=== PATIENT | male | born 1975 | race Two or more races ===

== ENCOUNTER 2020-02-24 11:49 | Emergency (ER) | payer OTHER ==
[~2020-02-24] VITALS: Ht 170.2 cm; Wt 81.6 kg
[2020-02-24 13:00] VITALS: BP 126/74
[2020-02-24] MEDS ORDERED: Ketorolac 30mg Inj IV ONE (13:00)
--- NOTE | 2020-02-24 13:00 | NUR ---
ED Nurse Note: Pt walked in from home c/o body aches and headache x 10 days. Pt was tested for COVID on 02/15 and negative. Denies SOB. Pt reports chills. Respirations even and unlabored on room air. Vitals stable as documented. A+Ox4, speaking in complete sentences.
--- NOTE | 2020-02-24 13:25 | Emergency Room Report ---
History of Present Illness General Chief Complaint: Flu Like Symptoms Source: Patient Present Illness HPI Patient presents emergency department today complaining complaints of body aches headache some neck stiffness cough sore throat mild runny nose. States that he has had the symptoms for about 10 days now. He had a Covid test performed on the seventh which she noted was negative. However he states that he is not feeling that much better. He does not have an actual temperature at home although he says he feels warm and he does not have a temperature here. He denies any chest pain leg pain leg swelling. States that he was sent over here by his work for chest x-ray but he does not feel well. Symptoms noted to be mild to moderate. Denies any visual changes. Denies any trauma. No other modifying factors. No other associated signs and symptoms. No other complaints were noted. 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 COVID-19 Screening: Negative COVID-19 COVID-19 Testing Source: 02/15 Patient History Past Medical History: none Past Surgical History: none Pertinent Family History: none Social History: Denies: smoking, alcohol use, drug use Reviewed Nursing Documentation: PMH: Agreed; PSxH: Agreed Nursing Documentation-PMH Past Medical History: No History, Except For Hx Diabetes: Yes Review of Systems All Other Systems: negative except mentioned in HPI Physical Exam Vital Signs Date Time Temp Pulse Resp B/P (MAP) Pulse Ox O2 Delivery O2 Flow Rate FiO2 02/24/20 12:49 98.4 103 20 122/79 (93) 94 Room Air Sp02 EP Interpretation: reviewed, normal General Appearance: normal inspection, well appearing, no apparent distress, alert Head: atraumatic Eyes: bilateral eye normal inspection ENT: normal ENT inspection, hearing grossly normal, normal voice Neck: normal inspection, full range of motion, supple, no bony tend Respiratory: normal inspection, lungs clear, normal breath sounds, no respiratory distress, no retraction, no wheezing Cardiovascular #1: regular rate, rhythm, no edema Gastrointestinal: normal inspection, normal bowel sounds, non tender, soft, no guarding, no hernia Genitourinary: no CVA tenderness Musculoskeletal: normal inspection, back normal, normal range of motion Neurologic: alert, responsive, speech normal, normal inspection Psychiatric: normal inspection, judgement/insight normal, mood/affect normal Medical Decision Making ER Course Patient presents emergency department today with multiple vague complaints. Given patient's presentation there is concern for possible infectious etiology versus viral etiology. Given the severity of the patient's presentation I felt this is a highly complex patient. This patient required extensive workup. I am signing this out to Dr. Barone for final disposition. EKG Diagnostic Results Rate: normal Rhythm: NSR ST Segments: no acute changes Rhythm Strip Diag. Results EP Interpretation: yes Rate: 105 Rhythm: NSR, no PVC's, no ectopy Last Vital Signs Date Time Temp Pulse Resp B/P (MAP) Pulse Ox O2 Delivery O2 Flow Rate FiO2 02/24/20 12:49 98.4 103 20 122/79 (93) 94 Room Air Referrals: [facility],REFERRING (PCP) Mayito Patel MD Feb 24, 2020 13:25
--- NOTE | 2020-02-24 13:35 | NUR ---
ED Nurse Note: pt in radiology
[2020-02-24 13:51] LABS: HEMATOCRIT 47.8 % (42.0-52.0); HEMOGLOBIN 15.7 G/DL (14.2-18.0); LYMPHOCYTES % (AUTO) 15.1 % (20.0-45.0); MEAN CORPUSCULAR VOLUME 86 FL (80-99); MONOCYTES % (AUTO) 16.6 % (1.0-10.0); NEUTROPHILS % (AUTO) 62.3 % (45.0-75.0); PLATELET COUNT 231 K/UL (150-450); RED BLOOD COUNT 5.57 M/UL (4.70-6.10); RED CELL DISTRIBUTION WIDTH 11.8 % (11.6-14.8)
[2020-02-24 13:52] LABS: ANION GAP 10 mmol/L (5-15); BLOOD UREA NITROGEN 12 mg/dL (7-18); CALCIUM 9.2 MG/DL (8.5-10.1); CARBON DIOXIDE 29 MMOL/L (21-32); CHLORIDE 100 MMOL/L (98-107); POTASSIUM 3.6 MMOL/L (3.5-5.1); SODIUM 138 MMOL/L (136-145)
[2020-02-24 13:53] LABS: APPEARANCE,URINE CLEAR; BILIRUBIN, URINE NEGATIVE (NEGATIVE); GLUCOSE, URINE (UA) 4+ (NEGATIVE); KETONES,URINE 1+ (NEGATIVE); LEUKOCYTE ESTERASE ,URINE NEGATIVE (NEGATIVE); NITRITE,URINE NEGATIVE (NEGATIVE); PH,URINE 5 (4.5-8.0); PROTEIN,URINE 2+ (NEGATIVE); UROBILINOGEN,URINE NORMAL MG/DL (0.0-1.0)
[2020-02-24 13:54] LABS: COLOR,URINE YELLOW
[2020-02-24 14:01] LABS: ALANINE AMINOTRANSFERASE 90 U/L (12-78); ALBUMIN 3.9 G/DL (3.4-5.0); ALBUMIN/GLOBULIN RATIO 1.1 (1.0-2.7); ASPARTATE AMINO TRANSFERASE 60 U/L (15-37); BILIRUBIN,TOTAL 0.6 MG/DL (0.2-1.0)
--- NOTE | 2020-02-24 14:07 | Diagnostic Imaging Report ---
Indications: Headache Technique: Spiral acquisitions obtained through the brain. Angled axial and coronal 5 x 5 mm slices were reconstructed. Total dose length product 1045 mGycm. CTDI vol(s) 53 mGy. Dose reduction achieved using automated exposure control Comparison: None. Findings: No acute intracranial hemorrhage or edema, mass effect, nor midline shift. Normal size ventricles and extra axial CSF spaces. Normal rogel-white differentiation. Intact calvarium. Visualized orbits and sinuses are unremarkable. The mastoids are clear Impression: Negative The CT scanner at [facility] is accredited by the [employer] and the scans are performed using protocols designed to limit radiation exposure to as low as reasonably achievable to attain images of sufficient resolution adequate for diagnostic evaluation.
--- NOTE | 2020-02-24 14:11 | Diagnostic Imaging Report ---
Indication: Cough Technique: One view of the chest Comparison: none Findings: Lungs and pleural spaces are clear. Heart size is normal. Impression: No acute process
[2020-02-24 14:12] LABS: ALKALINE PHOSPHATASE 91 U/L (46-116)
[2020-02-24 15:15] VITALS: BP 131/79
--- NOTE | 2020-02-24 15:15 | NUR ---
ER DISCHARGE NOTE: Patient is cleared to be discharged per ERMD, pt is aox4, on room air, with stable vital signs. pt was given dc and prescription instructions, pt was able to verbalize understanding, pt id band and iv site removed without complications. pt is able to ambulate with steady gait. pt took all belongings.
== END 2020-02-24 15:15 | disposition home or self-care (01) ==
LOC: EMR 13:15
DX: R51.9 Headache, unspecified (principal); M79.10 Myalgia, unspecified site; E11.8 Type 2 diabetes mellitus with unspecified complications
CPT/HCPCS: 36415; 70450; 71045; 80053; 81003; 85025; 93005; 96374; J1885; U0002; Z7502; 99284